=== PATIENT | male | born 1975 | race Asian ===

== ENCOUNTER 2023-10-24 18:40 | Emergency (ER) | payer BC ==
[~2023-10-24] VITALS: Ht 170.2 cm; Wt 75.0 kg
[2023-10-24 18:49] VITALS: BP 172/108; PULSE 86; RESP 18; TEMP 98.2; O2SAT 97
[2023-10-24] MEDS ORDERED: METHOCARBAMOL 500MG TABLET PO ONE (19:15)
[2023-10-24] MEDS ORDERED: IBUPROFEN 600MG TABLET PO ONE (19:15)
[2023-10-24] MEDS ORDERED: METH-653 MT (20:30)
[2023-10-24] MEDS ORDERED: IBUP-2029 MT (20:30)
== END 2023-10-24 21:17 | disposition home or self-care (01) ==
LOC: ER 18:40
DX: S43.402A Unspecified sprain of left shoulder joint, initial encounter (principal); X58.XXXA Exposure to other specified factors, initial encounter; Y93.89 Activity, other specified; Y92.89 Other specified places as the place of occurrence of the external cause; Y99.8 Other external cause status
CPT/HCPCS: 73030; 99283